=== PATIENT | male | born 1990 | race Caucasian/White ===

== ENCOUNTER 2024-07-11 12:08 | Emergency (ER) | payer SELFPAY ==
[2024-07-11 12:17] VITALS: BP 126/74; PULSE 92; RESP 18; TEMP 36.9; O2SAT 96; BMI 29.7
--- NOTE | 2024-07-11 12:37 | ED_ITS ---
HPI - Ear Problem <Candice Elise PA-C - Last Filed: 07/11/24 13:59> General Chief complaint: Ear Stated complaint: Diff Hearing Time Seen by Provider: 07/11/24 12:24 Source: patient Mode of arrival: Ambulatory History of Present Illness HPI Narrative: Mr. Vu is a 34-year-old male with no reported past medical history who presents to the emergency department for bilateral ear fullness and muffled hearing x1 week. Patient states about 4 years ago he had his ears flushed due to cerumen impactions and had relief. States that his current symptoms feel similar to then. Reports over the last week he has had progressive decreased hearing, ear fullness, pressure sensation in the ears. Reports putting hydrogen peroxide into his ears without relief. Denies fevers, chills, sore throat, URI symptoms. He is requesting to have his ears flushed. Related Data Allergies Allergy/AdvReac Type Severity Reaction Status Date / Time morphine Allergy ITCHING Verified 07/11/24 12:23 Review of Systems <Candice Elise PA-C - Last Filed: 07/11/24 13:59> Review of Systems ROS Unobtainable: All systems reviewed & are unremarkable except as noted in HPI and below Patient History <Candice Elise PA-C - Last Filed: 07/11/24 13:59> Social History Smoking Status: Current every day smoker Smoking Status: Current every day smoker tobacco type: cigarettes, vaping and smokeless tobacco alcohol intake frequency: a few times a month Substance Use Type: marijuana Exam <Candice Elise PA-C - Last Filed: 07/11/24 13:59> Narrative Exam Narrative: GENERAL: 34 year old patient appears stated age. Well-developed patient, in no acute distress. HEAD: Atraumatic. Normocephalic. EYES: Extraocular motions intact. No scleral icterus. No injection or drainage. ENT: External ears WNL. Cerumen impactions in bilateral ear canals. Nose without bleeding, purulent drainage. Airway patent. NECK: Trachea midline. Cervical ROM intact. CARDIOVASCULAR: Regular rate. RESPIRATORY: ?Nonlabored respirations. ?Speaking in clear, full sentences. EXTREMITIES: No edema or joint tenderness. NEURO: AOx3. ?Clear speech. ?Moves all 4 extremities appropriately. Steady gait. SKIN: No rash or erythema of visible areas Initial Vital Signs Initial Vital Signs: Vital Signs Temperature 98.5 F 07/11/24 12:17 Pulse Rate 92 H 07/11/24 12:17 Respiratory Rate 18 07/11/24 12:17 Blood Pressure 126/74 07/11/24 12:17 Pulse Oximetry 96 07/11/24 12:17 Oxygen Delivery Method Room Air 07/11/24 12:17 <Toya Marmolejo MD - Last Filed: 07/11/24 19:23> Initial Vital Signs Initial Vital Signs: Vital Signs Temperature 98.5 F 07/11/24 12:17 Pulse Rate 92 H 07/11/24 12:17 Respiratory Rate 18 07/11/24 12:17 Blood Pressure 126/74 07/11/24 12:17 Pulse Oximetry 96 07/11/24 12:17 Oxygen Delivery Method Room Air 07/11/24 12:17 Procedures <Candice Elise PA-C - Last Filed: 07/11/24 13:59> Ear Wax Removal Right Ear: Time of procedure: 13:00 Cerumenolytic Used: other (warm water + hydrogen peroxide) Patient Tolerated Procedure: Well Additional Comments: Patient decision to stop prior to complete removal due to improvement in symptoms. Course <Candice Elise PA-C - Last Filed: 07/11/24 13:59> Orders Ordered: ED Orders 07/11/24 12:22 [place] [facility] [place] Vital Signs Vital signs: Vital Signs - 8 hr 07/11/24 12:17 Temperature 98.5 F Pulse Rate 92 H Respiratory Rate 18 Blood Pressure 126/74 Pulse Oximetry 96 Oxygen Delivery Method Room Air <Toya Marmolejo MD - Last Filed: 07/11/24 19:23> Orders Ordered: ED Orders 07/11/24 12:22 [place] [facility] Vital Signs Vital signs: Vital Signs - 8 hr 07/11/24 12:17 Temperature 98.5 F Pulse Rate 92 H Respiratory Rate 18 Blood Pressure 126/74 Pulse Oximetry 96 Oxygen Delivery Method Room Air Medical Decision Making <Candice Elise PA-C - Last Filed: 07/11/24 13:59> MDM Narrative Medical decision making narrative: 34-year-old male presents to the emergency department for bilateral ear fullness and muffled hearing x1 week. Patient requesting to have his ears flushed. Differential diagnosis includes but is not limited to cerumen impaction, acute otitis media, acute otitis externa, many years, ear foreign body, etc. On exam patient is in no acute distress, nontoxic appearing, vital signs within normal limits. He has bilateral cerumen impactions and ear canals. We will proceed with irrigation of warm water and hydrogen peroxide and curette for cerumen impaction removal. Right ear irrigation with partial removal of cerumen. Patient reports that he can hear better and he no longer wishes to proceed with complete removal of right ear or left ear. We discussed [id number] Debrox and he states he would prefer to use [id number] medicines. Patient understands that without complete visualization of the TMs I can not rule out ear infection but because he is feeling better he wants to manage cerumen impactions at home. Discussed signs and symptoms to return to the ER for. Patient verbalized understanding of all information and is stable for discharge. Discharge Plan Departure Patient Disposition: Home Clinical Impression: Bilateral impacted cerumen Instructions: DI for Cerumen Impaction Activity Restrictions/Additional Instructions: Please purchase Debrox Earwax Removal Kit from the drug store and use it in both ears to help liquify and remove wax. Please avoid putting Q-tips or anything else into the ear that can push wax further. If you develop fevers, chills, worsening symptoms please return to the ER for complete removal of your ear wax. Please follow up with your primary care doctor within the next 2-3 days for ER follow-up. (If you do not have a PCP you can call [phone]. ?to schedule an appointment with an [facility] Primary Care Provider) IF YOU DEVELOP ANY NEW OR WORSENING SYMPTOMS, RETURN TO THE ER! Please read the attached instructions, they highlight more specific treatments and interventions for you at home. Thank you for letting me participate in your care, Candice Elise PA-C Stand Alone Forms: Patient Portal/API/Survey ED Sign-out <Toya Marmolejo MD - Last Filed: 07/11/24 19:23> Cosign ED Attending Cosignature Attestation: I was immediately available in the department for consultation throughout this patient's visit. Toya Marmolejo MD
--- NOTE | 2024-07-11 14:08 | CM.SWNOTE ---
Addendum entered by Lilibeth Sorensen 07/11/24 15:36: When YARD ASSISTANT is assessing patient's s/o, this patient is present after his d/c. 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 Patient states that he would like to go to detox too and states his last use was 2 days ago. When his s/o does detox intake screening it is reported that they do not allow couples. YARD ASSISTANT provides this patient with RADHA and detox resources and he states he will call [facility]. MATTY Valentino Original Note: ED YARD ASSISTANT Note Patient is 34 y/o male who presents to ED due to concerns for hearing in the last week. Patient endorses concern for food, housing and transportation instability. YARD ASSISTANT enters room to meet with patient. Patient endorses he is currently staying in a tent on Friday and surrounding areas. Patient states that he stayed with his sister for a few days in [place] and she was unable to host him and his partner further. Patient endorses he has family on Friday but they are not current supports at this time. Patient states that he does not have insurance but currently has food stamp benefits. Patient states his partner is and he wants to seek stability for the both of them. Patient endorses he utilizes [facility] for transportation. YARD ASSISTANT provides insurance, housing, basic needs and food resources for patient. YARD ASSISTANT to provide patient with [employer] bus passes as well. YARD ASSISTANT encourages patient to sign up for Medicaid as he states he has had this insurance in the past. Patient to d/c upon medical clearance and YARD ASSISTANT to speak further with patient's partner who is also in the ED. MATTY Valentino
== END 2024-07-11 14:00 | disposition home or self-care (01) ==
PROVIDERS: Emergency Provider Physician Assistant
DX: H61.23 Impacted cerumen, bilateral (principal)
CPT/HCPCS: 69209; 99281; 99283